=== PATIENT | female | born 1990 | race American Indian/Alaskan Native ===

== ENCOUNTER 2020-09-17 09:05 | Emergency (ER) | payer MEDICAID ==
--- NOTE | 2020-09-17 10:11 | Emergency Department Report ---
ED Altered Mental Status HPI - General Chief Complaint: Medical Clearance Stated Complaint: DRUG INGESTION Time Seen by Provider: 09/17/20 09:24 Source: EMS Mode of arrival: Stretcher Limitations: Altered Mental Status - History of Present Illness Initial Comments: Chief complaint: Altered mental status, possible drug use HPI: This is a 30-year-old female with unknown medical history who presents with altered mental status. Patient was found outside of a hotel room. She was semiresponsive. She told EMS that she took 6 ecstasy tablets. She is currently not cooperative. She arrived via EMS. MD Complaint: altered mental status, decreased responsiveness -: unknown Severity: mild Consistency of Symptoms: waxing and waning Context: drug abuse ED Review of Systems ROS: Stated complaint: DRUG INGESTION Other details as noted in HPI Comment: Unobtainable due to pts medical conditions (Altered mental status, lack of patient cooperation) ED Past Medical Hx - Past Medical History Additional medical history: Unable to obtain - Surgical History Additional Surgical History: Unable to obtain - Family History Family history: other (Noncontributory to this presentation) - Social History Smoking Status: Unknown if ever smoked Substance Use Type: Other (Ecstasy) ED Physical Exam - General Limitations: Altered Mental Status General appearance: alert, in no apparent distress, other (Purposeful movement, patient pulls sheets overhead, protecting airway, disheveled hair patient wearing shirt and underwear only) - Head Head exam: Present: atraumatic, normocephalic - Eye Eye exam: Present: normal appearance. Absent: scleral icterus, conjunctival injection - ENT ENT exam: Present: mucous membranes moist - Neck Neck exam: Present: normal inspection, full ROM - Respiratory Respiratory exam: Present: normal lung sounds bilaterally. Absent: respiratory distress, wheezes, rales, rhonchi - Cardiovascular Cardiovascular Exam: Present: regular rate, normal rhythm, normal heart sounds. Absent: systolic murmur, diastolic murmur, rubs, gallop - GI/Abdominal GI/Abdominal exam: Present: soft, normal bowel sounds. Absent: distended, tenderness, guarding, rebound - Extremities Exam Extremities exam: Present: normal inspection - Back Exam Back exam: Present: normal inspection - Neurological Exam Neurological exam: Present: alert, oriented X3, other (Moves all 4 extremities) - Psychiatric Psychiatric exam: Present: agitated - Skin Skin exam: Present: warm, dry, intact, normal color. Absent: rash ED Course Vital Signs 09/17/20 09/17/20 09/17/20 08:10 08:16 08:30 Pulse Rate 73 74 69 Respiratory 25 H 13 21 Rate Blood Pressure 119/66 119/66 116/77 O2 Sat by Pulse 96 96 Oximetry 09/17/20 09/17/20 09/17/20 10:00 10:06 10:15 Pulse Rate 97 H Respiratory 16 18 Rate Blood Pressure 108/60 O2 Sat by Pulse 87 93 Oximetry 09/17/20 09/17/20 10:30 10:45 Pulse Rate 97 H 97 H Respiratory 20 20 Rate Blood Pressure 108/60 103/62 O2 Sat by Pulse 94 94 Oximetry - Medical Decision Making After 5 hours observation, patient will not cooperate with history taking. I have ordered further work-up. I suspect that patient ingested multiple recreational drugs. Awaiting sobriety. Critical care attestation.: If time is entered above; I have spent that time in minutes in the direct care of this critically ill patient, excluding procedure time. ED Disposition Clinical Impression: Polysubstance abuse, Altered mental status Disposition: DC-01 TO HOME OR SELFCARE Is pt being admited?: No Does the pt Need Aspirin: No Condition: Stable Instructions: Substance Use Disorder
[2020-09-17] MEDS ORDERED: SODIUM CHLORIDE 0.9% 1000 ML 1,000 ML IV ONE ×2 (13:56)
[2020-09-17] MEDS ORDERED: SODIUM CHLORIDE 0.9% 1000 ML 1,000 ML ONE (14:32)
[2020-09-17 16:16] VITALS: BP 141/99
== END 2020-09-17 16:21 | disposition home or self-care (01) ==
LOC: ED 09:05
DX: R41.82 Altered mental status, unspecified (principal); F19.10 Other psychoactive substance abuse, uncomplicated
CPT/HCPCS: 96360; 99283; J7030

== ENCOUNTER 2020-09-18 00:45 | Emergency (ER) | payer MEDICAID | END 2020-09-18 03:30 | LOC: ED 00:45 | DX: Z00.8 Encounter for other general examination (principal); Z53.21 Procedure and treatment not carried out due to patient leaving prior to being seen by health care provider ==